=== PATIENT | female | born 2000 | race Caucasian/White ===

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

== ENCOUNTER 2019-04-02 18:41 | Emergency (ER) | payer SELFPAY ==
[~2019-04-02] VITALS: Ht 157.5 cm; Wt 81.3 kg
[2019-04-02 18:45] VITALS: BP 123/77
--- NOTE | 2019-04-02 18:49 | PHYS DOC ---
Past History Past Medical History: STD, Other Additional Past Medical Histor: spherocytosis Past Surgical History: Cholecystectomy Smoking: Non-smoker Alcohol Use: None Drug Use: None Adult General Chief Complaint Chief Complaint: ".. I all sudden got this really sore throat... and some fevers.." HPI HPI Patient is a 18 year old female who presents with above hx and complaints pharyngitis and fevers. Patient denies any history immunosuppression. No history of travel. Denies specific ill contacts. Patient reports she previously has had mononucleosis. Patient did get flu vaccination this season. Patient does smoke. Pt. does have hx of spherocytosis. In past pt. followed with Dr. Harper. Review of Systems Review of Systems Constitutional: History of fever or chills [] Eyes: Denies change in visual acuity, redness, or eye pain [] HENT: Denies nasal congestion or rhinorrhea. History of sore throat [] Respiratory: Denies cough or shortness of breath [] Cardiovascular: No additional information not addressed in HPI [] GI: Denies abdominal pain, nausea, vomiting, bloody stools or diarrhea [] : Denies dysuria or hematuria [] Musculoskeletal: Denies back pain or joint pain [] Integument: Denies rash or skin lesions [] Neurologic: Denies headache, focal weakness or sensory changes [] Endocrine: Denies polyuria or polydipsia [] All other systems were reviewed and found to be within normal limits, except as documented in this note. Family History Family History Noncontributory Current Medications Current Medications See nursing for home meds Allergies Allergies Allergies Coded Allergies Type Severity Reaction Last Updated Verified cefdinir Allergy Intermediate 02/14/17 Yes Physical Exam Physical Exam Constitutional: Well developed, well nourished, moderate acute distress, non- toxic appearance. [] HENT: Normocephalic, atraumatic, bilateral external ears normal, oropharynx moist, no oral exudates, nose normal. Injected pharynx some ulcers of tonsillar pillars. Eyes: PERRLA, EOMI, conjunctiva normal, no discharge. [] Neck: Normal range of motion, no tenderness, supple, no stridor. [] Cardiovascular:Heart rate regular rhythm, no murmur [] Lungs & Thorax: Bilateral breath sounds equal apex with scattered wheezes on auscultation [] Abdomen: Bowel sounds normal, soft, no tenderness, no masses, no pulsatile masses. [] Old surgery scar. Skin: Warm, dry, no erythema, no rash. [] Back: No tenderness, no CVA tenderness. [] Extremities: No tenderness, no cyanosis, no clubbing, ROM intact, no edema. [] Neurologic: Alert and oriented X 3, normal motor function, normal sensory function, no focal deficits noted. [] Psychologic: Affect anxious, judgement normal, mood normal. [] EKG EKG [] Radiology/Procedures Radiology/Procedures [] Course & Med Decision Making Course & Med Decision Making Pertinent Labs and Imaging studies reviewed. (See chart for details) Patient gargle with Listerine 4 times a day. Patient may gargle more frequent. Patient take Tylenol and ibuprofen for discomfort. May use liquid ibuprofen and liquid Benadryl for topical relief of pharyngitis. Patient follow-up primary care. Patient return of any concerns. Patient encouraged on smoking. Follow-up strep culture. 1. Viral pharyngitis 2. Tobacco use 3. Hx. Spherocytosis [] Dragon Disclaimer Dragon Disclaimer This electronic medical record was generated, in whole or in part, using a voice recognition dictation system. Departure Departure: Disposition: HOME/RESIDENCE PRIOR TO ADM Condition: STABLE Referrals: PCP,NO (PCP) Scripts Hydrocodone/Ibuprofen (HYDROCODONE-IBUPROFEN 7.5-200 ) 1 Each Tablet 1 TAB PO PRN Q6HRS PRN for PAIN, #30 TAB 0 Refills Prov: MEENAKSHI JEFFERS MD 04/02/19 MEENAKSHI JEFFERS MD Apr 02, 2019 18:49
[2019-04-02] MEDS ORDERED: predniSONE 10 MG TABLET PO ONE (19:15)
[2019-04-02 19:54] LABS: BARBITURATES NEG (NEG); BENZODIAZEPINES NEG (NEG); CANNABINOIDS POS (NEG); COCAINE NEG (NEG); METHADONE NEG (NEG); OPIATES NEG (NEG); PHENCYCLIDINE NEG (NEG)
[2019-04-02 19:57] LABS: BACTERIA,URINE MANY /HPF (0-FEW); BILIRUBIN,URINE NEG (NEG); CLARITY,URINE CLOUDY; COLOR,URINE AMBER; GLUCOSE,URINE NEG (NEG); NITRITE,URINE NEG (NEG); RBC,URINE 0 /HPF (0-2); SQUAMOUS EPITHELIAL CELL,UR MANY /LPF
[2019-04-02 19:58] LABS: AMORPHOUS SEDIMENT,UR PRESENT /HPF
[2019-04-02 19:59] LABS: AMPHETAMINE/METHAMPHETAMINE NEG (NEG)
[2019-04-02 19:59] LABS: INFLUENZA A PATIENT NEGATIVE (NEGATIVE); INFLUENZA B PATIENT NEGATIVE (NEGATIVE)
[2019-04-02] MEDS ORDERED: HYDR-1179 PO (20:14)
[2019-04-02] MEDS ORDERED: HYDROcodon/IBUPROFEN 7.5/200MG 1 TAB TABLET PO ONE (20:15)
== END 2019-04-02 20:40 | disposition home or self-care (01) ==
LOC: ER 18:41
DX: B97.89 Other viral agents as the cause of diseases classified elsewhere (principal); Z72.0 Tobacco use; Z88.8 Allergy status to other drugs, medicaments and biological substances; Z90.49 Acquired absence of other specified parts of digestive tract
CPT/HCPCS: 36415; 80307; 81001; 81025; 87070; 87086; 87804; 87880; 99284; J7512

== ENCOUNTER 2020-10-10 03:16 | Emergency (ER) | payer SELFPAY ==
[~2020-10-10] VITALS: Ht 157.5 cm; Wt 86.8 kg
[~2020-10-10 03:16] MED LIST changes: +HYDR-1179 PO
[2020-10-10 03:26] VITALS: BP 128/77
[2020-10-10] MEDS ORDERED: CHLO15MO2 PO (03:55)
[2020-10-10] MEDS ORDERED: PRED20TA PO (03:55)
--- NOTE | 2020-10-10 03:55 | PHYS DOC ---
Past History Past Medical History: STD, Other Additional Past Medical Histor: spherocytosis Past Surgical History: Cholecystectomy Smoking: Non-smoker Alcohol Use: None Drug Use: None General Adult EDM: Chief Complaint: TONGUE SWELLING/INJURY HPI: HPI: Patient is a [age] year old [sex] who presents with [] Review of Systems: Review of Systems: Constitutional: Denies fever or chills Eyes: Denies change in visual acuity HENT: Denies nasal congestion or sore throat Respiratory: Denies cough or shortness of breath Cardiovascular: Denies chest pain or edema GI: Denies abdominal pain, nausea, vomiting, bloody stools or diarrhea : Denies dysuria Musculoskeletal: Denies back pain or joint pain Integument: Denies rash Neurologic: Denies headache, focal weakness or sensory changes Endocrine: Denies polyuria or polydipsia Lymphatic: Denies swollen glands Psychiatric: Denies depression or anxiety Allergies: Allergies: Allergies Coded Allergies Type Severity Reaction Last Updated Verified cefdinir Allergy Intermediate 10/10/20 Yes Physical Exam: PE: Constitutional: Well developed, well nourished, no acute distress, non-toxic appearance. [] HENT: Normocephalic, atraumatic, bilateral external ears normal, oropharynx moist, no oral exudates, nose normal. [] Eyes: PERRLA, EOMI, conjunctiva normal, no discharge. [] Neck: Normal range of motion, no tenderness, supple, no stridor. [] Cardiovascular:Heart rate regular rhythm, no murmur [] Lungs & Thorax: Bilateral breath sounds clear to auscultation [] Abdomen: Bowel sounds normal, soft, no tenderness, no masses, no pulsatile masses. [] Skin: Warm, dry, no erythema, no rash. [] Back: No tenderness, no CVA tenderness. [] Extremities: No tenderness, no cyanosis, no clubbing, ROM intact, no edema. [] Neurologic: Alert and oriented X 3, normal motor function, normal sensory function, no focal deficits noted. [] Psychologic: Affect normal, judgement normal, mood normal. [] Current Patient Data: Vital Signs: Vital Signs Date Time Temp Pulse Resp B/P (MAP) Pulse Ox O2 Delivery O2 Flow Rate FiO2 10/10/20 03:26 98.2 100 20 128/77 (94) 97 Room Air EKG: EKG: [] Radiology/Procedures: Radiology/Procedures: [] Heart Score: Risk Factors: Risk Factors: DM, Current or recent (<one month) smoker, HTN, HLP, family history of CAD, obesity. Risk Scores: Score 0 - 3: 2.5% MACE over next 6 weeks - Discharge Home Score 4 - 6: 20.3% MACE over next 6 weeks - Admit for Clinical Observation Score 7 - 10: 72.7% MACE over next 6 weeks - Early Invasive Strategies Course & Med Decision Making: Course & Med Decision Making Pertinent Labs and Imaging studies reviewed. (See chart for details) [] Dragon Disclaimer: Dragon Disclaimer: This electronic medical record was generated, in whole or in part, using a voice recognition dictation system. Departure Departure: Impression: Primary Impression: Tongue irritation Disposition: HOME / SELF CARE / HOMELESS Condition: STABLE Referrals: PCP,[facility] (PCP) Additional Instructions: Please take prescribed medications to help control discomfort caused by your tongue. These medications should help tongue to improve. May also use over the counter Tylenol and/or Ibuprofen as needed for discomfort. Scripts Chlorhexidine Gluconate (PERIDEX) 15 Ml Mouthwash 15 ML PO BID for Tongue irritation, #473 ML 0 Refills Prov: MILTON URIAS DO 10/10/20 Prednisone (PREDNISONE) 20 Mg Tablet 2 TAB PO DAILY for Tongue irritation, #8 TAB Start this prescription tomorrow, Wednesday10/11/20 Prov: MILTON URIAS DO 10/10/20 MILTON URIAS DO Oct 10, 2020 03:55
[2020-10-10] MEDS ORDERED: DEXAMETHASONE 4 MG TABLET PO ONE (04:00)
== END 2020-10-10 04:04 | disposition home or self-care (01) ==
LOC: ER 03:16
DX: K13.29 Other disturbances of oral epithelium, including tongue (principal); Z90.49 Acquired absence of other specified parts of digestive tract
CPT/HCPCS: 99283; J8540